=== PATIENT | male | born 1990 | race Caucasian/White ===

== ENCOUNTER 2017-01-21 06:50 | Day surgery (SDC) | payer OTHER ==
[~2017-01-21] VITALS: Ht 172.7 cm; Wt 105.2 kg
[~2017-01-21 06:50] MED LIST: ULTRAM50 MG PO
[2017-01-21] MEDS ORDERED: ULTRAM50 MG PO (07:23)
[2017-01-21] MEDS ORDERED: BUPIVACAINE-MPF/EPI 0.25% 30 ML VIAL INJ ONE (07:45)
[2017-01-21] MEDS ORDERED: ROCURONIUM 50 MG/5 ML VIAL IV ONE (09:11)
[2017-01-21] MEDS ORDERED: PROPOFOL 200 MG/20 ML VIAL IV ONE (09:11)
[2017-01-21] MEDS ORDERED: SUCCINYLCHOLINE CHLORIDE 200 MG/10 ML VIAL IVP ONE (09:11)
[2017-01-21] MEDS ORDERED: DESFLURANE 240 ML BTL INH ONE (09:11)
[2017-01-21] MEDS ORDERED: ONDANSETRON 4 MG/2 ML VIAL ONE (09:11)
[2017-01-21] MEDS ORDERED: DEXAMETHASONE 4 MG/ML VIAL ONE (09:11)
[2017-01-21] MEDS ORDERED: GLYCOPYRROLATE 0.2 MG/ML VIAL ONE (09:11)
[2017-01-21] MEDS ORDERED: PHENYLEPHRINE 10 MG/ML VIAL ONE (09:11)
[2017-01-21] MEDS ORDERED: fentaNYL 0.05 MG/ML VIAL ONE (09:26)
[2017-01-21] MEDS ORDERED: MORPHINE SULFATE 4 MG/ML SYR ONE ×2 (09:27→10:43)
[2017-01-21] MEDS ORDERED: MIDAZOLAM 2 MG/2 ML VIAL ONE (09:27)
[2017-01-21] MEDS ORDERED: METOCLOPRAMIDE 10 MG/2 ML INJ VIAL IVP PRN (10:05)
[2017-01-21] MEDS ORDERED: MIDAZOLAM 2 MG/2 ML VIAL IV ONE (10:05)
[2017-01-21] MEDS ORDERED: MORPHINE SULFATE 2 MG/ML SYR IVP PRN ×2 (10:05→10:35)
[2017-01-21] MEDS ORDERED: MORPHINE SULFATE 4 MG/ML SYR IVP PRN ×2 (10:05)
[2017-01-21] MEDS ORDERED: ONDANSETRON 4 MG/2 ML VIAL IV PRN (10:35)
[2017-01-21] MEDS ORDERED: HYDROmorphone 1 MG/ML AMP IVP PRN (10:35)
[2017-01-21] MEDS ORDERED: HYDROcodone/APAP 5/325 MG 1 TAB TAB PO PRN (10:35)
[2017-01-21] MEDS ORDERED: MORPHINE SULFATE 4 MG/ML SYR IV PRN (10:35)
== END 2017-01-21 12:00 | disposition home or self-care (01) ==
LOC: MDS 06:50 → MMU 06:51 → EDSTATUS 09:00 → MDS 12:00
PROVIDERS: ATTEND Surgery
DX: L05.01 Pilonidal cyst with abscess (principal); E66.3 Overweight; Z68.36 Body mass index [BMI] 36.0-36.9, adult
CPT/HCPCS: 11042; 71010; 87070; 87075; 87205; J0690; J1170; J2250; J2270; J2405; J3010; J3490; J7030; J7060; J7120